=== PATIENT | female | born 1995 | race Caucasian/White ===

== ENCOUNTER 2024-04-27 06:56 | Day surgery (SDC) | payer OTHER ==
[2024-04-24 15:43] VITALS: BMI 25.0
[2024-04-27] MEDS ORDERED: BUPIVACAINE HCL/PF 0.25% (2.5MG/ML) 10 ML VIAL ONE (07:20)
[2024-04-27] MEDS ORDERED: ONDANSETRON 4 MG/2 ML VIAL IVPUSH PRN (08:56)
[2024-04-27] MEDS ORDERED: oxyCODONE HCL 5 MG TABLET PO PRN (08:56)
[2024-04-27] MEDS ORDERED: LACTATED RINGERS SOLUTION 1,000 ML IV SCH (09:00)
[2024-04-27] MEDS ORDERED: MIDAZOLAM HCL 2 MG/2 ML SINGLE DOSE VIAL ONE (09:05)
[2024-04-27] MEDS ORDERED: PROPOFOL 40 ML ONE (09:05)
[2024-04-27] MEDS ORDERED: LIDOCAINE HCL/PF 2% SDV 5ML VIAL ONE (09:06)
[2024-04-27] MEDS ORDERED: DEXAMETHASONE SOD PHOSPHATE 4 MG/1 ML VIAL ONE (09:19)
[2024-04-27] MEDS ORDERED: ONDANSETRON 4 MG/2 ML VIAL ONE (09:19)
[2024-04-27] MEDS: BUPIVACAINE HCL/PF 0.25% (2.5MG/ML) 10 ML VIAL IJ ONE (09:31)
[2024-04-27] MEDS ORDERED: ACETAMINOPHEN INJECTION 100 ML ONE (10:31)
[2024-04-27] MEDS: ACETAMINOPHEN 1000 MG/100 ML BAG IVPB ONE (10:34)
[2024-04-27 11:53] VITALS: TEMP 97.7
[2024-04-27 11:55] VITALS: BP 112/64; PULSE 66; RESP 19
== END 2024-04-27 11:45 | disposition home or self-care (01) ==
LOC: FASU 06:56
PROVIDERS: ATTEND Orthopaedic Surgery Sports Medicine
PROC: 0SBD4ZZ Excision of Left Knee Joint, Percutaneous Endoscopic Approach (ICD-10-PCS; principal; 2024-04-27 09:32)
DX: M67.52 Plica syndrome, left knee (principal); M94.262 Chondromalacia, left knee
CPT/HCPCS: 29875; G0289; 81025; 94760; J0131

== ENCOUNTER 2024-07-02 20:42 | Emergency (ER) | payer OTHER ==
[2024-07-02 20:51] VITALS: BP 115/85; PULSE 61; RESP 16; TEMP 97.5; BMI 24.3
[2024-07-02] MEDS ORDERED: IBUPROFEN 600 MG TABLET (FP) PO ONE (21:05)
[2024-07-02] MEDS ORDERED: METHOCARBAMOL 500 MG TABLET ONE (21:06)
[2024-07-02] MEDS: METHOCARBAMOL 500 MG TABLET PO ONE (21:07)
[2024-07-02] MEDS: IBUPROFEN 600 MG TABLET (FP) PO ONE (21:07)
== END 2024-07-02 21:11 | disposition home or self-care (01) ==
LOC: FER 20:42
DX: S13.4XXA Sprain of ligaments of cervical spine, initial encounter (principal); S00.93XA Contusion of unspecified part of head, initial encounter; R68.84 Jaw pain; M54.2 Cervicalgia; W01.198A Fall on same level from slipping, tripping and stumbling with subsequent striking against other object, initial encounter
CPT/HCPCS: 99283-25